=== PATIENT | female | born 2000 | race Caucasian/White ===

== ENCOUNTER 2019-01-24 18:40 | Emergency (ER) | payer OTHER ==
[~2019-01-24] VITALS: Ht 157.5 cm; Wt 73.9 kg
[2019-01-24 18:43] VITALS: BP 138/94
--- NOTE | 2019-01-24 18:47 | NUR ---
PT TO [facility]ONT[facility]. [id number]. VSS
--- NOTE | 2019-01-24 19:07 | NUR ---
PT AMBULATED TO BED 11 WITH STEADY GAIT.
--- NOTE | 2019-01-24 19:12 | NUR ---
18 YO F BIB SELF PRESENTS TO ED STATING "I THINK I WAS EXPOSED TO [facility] FOR 3-5 HOURS". 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 PT C/O NAUSEA, VOMITING X 1, DIZZINESS, "FEELING DISORIENTED" AND MILD ANXIETY. PT DENIES PAIN BUT STATES HER CHEST FEELS HEAVY. -- PT AWAKE, A/O X 4, CALM, COOPERATIVE. SPEAKING IN FULL, CLEAR SENTENCES. BEHAVIOR AGE APPROPRIATE. -- SKIN PINK, WARM, DRY. BREATHING EVEN, UNLABORED. PMH-- DENIES RX-- DENIES
--- NOTE | 2019-01-24 21:11 | NUR ---
WAS NOTIFIED BY EMT THAT PT ELOPED, DR MARIE MADE AWARE.
== END 2019-01-24 21:11 | disposition left against medical advice (07) ==
LOC: MED 18:40
DX: T58.8X1A Toxic effect of carbon monoxide from other source, accidental (unintentional), initial encounter (principal); R42 Dizziness and giddiness; R51 Headache; R11.2 Nausea with vomiting, unspecified; Y92.59 Other trade areas as the place of occurrence of the external cause
CPT/HCPCS: 81002; 81025; 99282

== ENCOUNTER 2019-08-24 22:25 | Emergency (ER) | payer OTHER ==
[~2019-08-24] VITALS: Ht 157.5 cm; Wt 83.6 kg
[2019-08-24 22:30] VITALS: BP 167/97
--- NOTE | 2019-08-24 22:46 | NUR ---
PT AMBULATED TO BED 11 WITH STEADY GAIT.
--- NOTE | 2019-08-24 22:50 | NUR ---
19F C/O APPROX 1 CM X 1 CM LACERATION TO RIGHT WRIST. PT DOES NOT KNOW HOW IT HAPPENED. TOOK 3 SHOTS OF TEQUILA, INTOXICATED. PMH-- DENIES RX: DENIES
[2019-08-24] MEDS ORDERED: LIDOCAINE 2% 1000 MG/50 ML VIAL INJ ONE (23:00)
--- NOTE | 2019-08-24 23:54 | NUR ---
DR KAUFFMAN AT BEDSIDE PERFORMING PROCEDURE
--- NOTE | 2019-08-25 00:08 | NUR ---
XRAY AT BEDSIDE
--- NOTE | 2019-08-25 00:14 | NUR ---
pt administered with tdap vaccine. consent signed.
[2019-08-25] MEDS ORDERED: NEOMYCIN/POLYMYXIN/BACITRACIN 0.9 GM/1 PKT TP ONE (00:25)
[2019-08-25 00:44] VITALS: BP 167/97
--- NOTE | 2019-08-25 00:44 | NUR ---
Patient discharged with v/s stable. Written and verbal after care instructions given and explained. Patient verbalized understanding. Ambulatory with steady gait. All questions addressed prior to discharge. Advised to follow up with PMD.
== END 2019-08-25 00:44 | disposition home or self-care (01) ==
LOC: MED 22:25
DX: S61.511A Laceration without foreign body of right wrist, initial encounter (principal); W26.8XXA Contact with other sharp object(s), not elsewhere classified, initial encounter; Y93.89 Activity, other specified; Y92.89 Other specified places as the place of occurrence of the external cause; Y99.8 Other external cause status
CPT/HCPCS: 12001; 73110; 90471; 90715; 99283; J2001; Q0092

== ENCOUNTER 2019-10-29 08:40 | Emergency (ER) | payer OTHER ==
[~2019-10-29] VITALS: Ht 160 cm; Wt 84.8 kg
[2019-10-29 08:46] VITALS: BP 149/91
--- NOTE | 2019-10-29 08:47 | NUR ---
PT AMBULATED TO BED 06
--- NOTE | 2019-10-29 08:51 | NUR ---
19 Y/O FEMALE FROM HOME PRESENTS TO ER FOR SUTURE RECHECK, SUTURES PLACED 08/24/2019 TO RT WRIST AND NEVER HAD THEM REMOVED, SKIN HAS GROWN OVER ONE SUTURE AND ONE SUTURE NOTICABLE. STATES 5/10 PAIN AT THIS TIME. AFEBRILE AT THIS TIME. +CMS, +PULSES. AWAKE AND ALERT. VSS
--- NOTE | 2019-10-29 09:27 | NUR ---
DR NOONAN AT BEDSIDE EXAMINING PT
[2019-10-29] MEDS ORDERED: LIDOCAINE/EPI 1% 1:100000 20 ML VIAL INJ ONE (09:30)
--- NOTE | 2019-10-29 09:34 | NUR ---
LIDOCAINE PLACED AT BEDSIDE FOR USE BY DR NOONAN.
--- NOTE | 2019-10-29 10:22 | NUR ---
SITTING IN BED AWAKE AND ALERT. RR EVEN AND UNLABORED. VSS. WILL CONTINUE TO MONITOR
--- NOTE | 2019-10-29 10:35 | NUR ---
DR NOONAN AT BEDSIDE PERFORMING PROCEDURE
[2019-10-29 10:51] VITALS: BP 138/88
== END 2019-10-29 10:51 | disposition home or self-care (01) ==
LOC: MED 08:40
DX: S61.511D Laceration without foreign body of right wrist, subsequent encounter (principal); L03.113 Cellulitis of right upper limb; X58.XXXD Exposure to other specified factors, subsequent encounter
CPT/HCPCS: 99282; J2001

== ENCOUNTER 2020-08-29 15:49 | Emergency (ER) | payer OTHER ==
[~2020-08-29] VITALS: Ht 157.5 cm; Wt 93.9 kg
[2020-08-29 15:57] VITALS: BP 155/125
--- NOTE | 2020-08-29 16:01 | NUR ---
PT TAKEN TO ER BED 9.
--- NOTE | 2020-08-29 16:03 | NUR ---
HARDEEP Marks at pt bedside for further evaluation.
[2020-08-29] MEDS ORDERED: KETOROLAC 30 MG/ML VIAL IM ONE (16:05)
--- NOTE | 2020-08-29 16:07 | NUR ---
20 Y/O FEMALE C/O LEFT FOOT PAIN 10/02 DESCRIBES SHARP NON-RADIATING X1DAY WORSEN WITH AMBULATION. S/P FALL. PT STATED TAKEN TYLENOL FOR THE PAIN WITH MINIMAL RELIEF. PT DENIES N/V, DENIES FEVER/CHILLS. DENIES PMH NKA
[2020-08-29] MEDS ORDERED: ACETAMINOPHEN EXTRA STRENGTH 500 MG TAB PO ONE (16:40)
[2020-08-29] MEDS ORDERED: NAPR-54 PO (16:58)
[2020-08-29 17:11] VITALS: BP 155/125
--- NOTE | 2020-08-29 17:12 | NUR ---
Patient discharged with v/s stable. Written and verbal after care instructions given and explained. Patient alert, oriented and verbalized understanding of instructions. Ambulatory with steady gait. All questions addressed prior to discharge. ID band removed. Patient advised to follow up with PMD. Rx of naproxen 500mg po bid prn pain given. Patient educated on indication of medication including possible reaction and side effects. Opportunity to ask questions provided and answered.
== END 2020-08-29 17:12 | disposition home or self-care (01) ==
LOC: MED 15:49
DX: M79.671 Pain in right foot (principal); W18.41XA Slipping, tripping and stumbling without falling due to stepping on object, initial encounter; Y93.89 Activity, other specified; Y92.89 Other specified places as the place of occurrence of the external cause; Y99.8 Other external cause status
CPT/HCPCS: 73630; 99283; J1885

== ENCOUNTER 2021-04-20 08:29 | Emergency (ER) | payer OTHER ==
[~2021-04-20] VITALS: Ht 157.5 cm; Wt 100.7 kg
[~2021-04-20 08:29] MED LIST: NAPR-54 PO
[2021-04-20 08:39] VITALS: BP 156/65
--- NOTE | 2021-04-20 08:40 | NUR ---
urbano and fadi swabbed at this time.
--- NOTE | 2021-04-20 08:44 | NUR ---
pt returned to tent 01.
[2021-04-20 09:16] VITALS: BP 156/65
== END 2021-04-20 09:06 | disposition home or self-care (01) ==
LOC: MED 08:29
DX: J06.9 Acute upper respiratory infection, unspecified (principal); Z20.822 Contact with and (suspected) exposure to COVID-19; Z79.899 Other long term (current) drug therapy
CPT/HCPCS: 87426; 99283; U0003

== ENCOUNTER 2021-05-11 11:33 | Emergency (ER) | payer OTHER ==
[~2021-05-11] VITALS: Ht 162.6 cm; Wt 86.2 kg
[2021-05-11 11:45] VITALS: BP 146/99
[2021-05-11] MEDS ORDERED: ACETAMINOPHEN 325 MG TAB PO ONE (12:15)
[2021-05-11] MEDS ORDERED: ACET-8386 PO (15:43)
--- NOTE | 2021-05-11 16:03 | NUR ---
PER ERPA PT RIGHT UPPER AND LOWER ARM WAS PLACE IN A SPLINT AND PMCS WAS ASSESSED BEFORE AND AFTER ALL WNL. ERPA ASSESSED SPLINT AND APPROVED.
== END 2021-05-11 16:33 | disposition home or self-care (01) ==
LOC: MED 11:33
DX: S52.001A Unspecified fracture of upper end of right ulna, initial encounter for closed fracture (principal); Z79.899 Other long term (current) drug therapy; W17.89XA Other fall from one level to another, initial encounter; Y93.89 Activity, other specified; Y92.89 Other specified places as the place of occurrence of the external cause; Y99.8 Other external cause status
CPT/HCPCS: 29105; 73080; 73090; 73200; 99284

== ENCOUNTER 2021-07-08 18:48 | Emergency (ER) | payer OTHER ==
[~2021-07-08] VITALS: Ht 157.5 cm; Wt 97.5 kg
[~2021-07-08 18:48] MED LIST changes: +ACET-8386 PO
--- NOTE | 2021-07-08 19:00 | NUR ---
HARDEEP BACON EVALUATING PATIENT AT BEDSIDE.
[2021-07-08 19:08] VITALS: BP 130/69
--- NOTE | 2021-07-08 19:26 | NUR ---
Pt report given to MILA FORMAN. Transfer of care at this time.
[2021-07-08] MEDS ORDERED: NAPR-54 PO (19:44)
[2021-07-08 19:55] VITALS: BP 125/78
--- NOTE | 2021-07-08 19:56 | NUR ---
dcPatient discharged with v/s stable WITH RIGHT INDEX SPLINTED. Written and verbal after care instructions given and explained. Patient alert, oriented and verbalized understanding of instructions. Ambulatory with steady gait. All questions addressed prior to discharge. ID band removed. Patient advised to follow up with PMD. Rx of NAPROSYN given. Patient educated on indication of medication including possible reaction and side effects. Opportunity to ask questions provided and answered.
== END 2021-07-08 19:56 | disposition home or self-care (01) ==
LOC: MED 18:48
DX: S62.600A Fracture of unspecified phalanx of right index finger, initial encounter for closed fracture (principal); Z79.899 Other long term (current) drug therapy; Z98.890 Other specified postprocedural states; W23.0XXA Caught, crushed, jammed, or pinched between moving objects, initial encounter; Y93.89 Activity, other specified; Y92.89 Other specified places as the place of occurrence of the external cause; Y99.8 Other external cause status
CPT/HCPCS: 73140; 99283

== ENCOUNTER 2023-11-15 03:39 | Emergency (ER) | payer MEDICAID, OTHER ==
[~2023-11-15] VITALS: Ht 157.5 cm; Wt 99.8 kg
[~2023-11-15 03:39] MED LIST changes: -ACET-8386 PO; +ACET-8905 PO; +NAPR-337 PO; -NAPR-54 PO
[2023-11-15 03:44] VITALS: BP 136/84; PULSE 90; RESP 20; TEMP 98.6; O2SAT 98
[2023-11-15 04:23] VITALS: O2SAT 98
[2023-11-15 04:27] LABS: FLU A ANTIGEN negative (NEGATIVE); FLU B ANTIGEN NEGATIVE (NEGATIVE)
[2023-11-15] MEDS ORDERED: ALBU0.0912 IH (04:40)
[2023-11-15] MEDS ORDERED: BENZ200C4 PO (04:40)
[2023-11-15] MEDS ORDERED: AZIT250T4 PO (04:40)
== END 2023-11-15 04:46 | disposition home or self-care (01) ==
LOC: MED 03:39
DX: J18.9 Pneumonia, unspecified organism (principal); R19.7 Diarrhea, unspecified; Z20.822 Contact with and (suspected) exposure to COVID-19; Z79.1 Long term (current) use of non-steroidal anti-inflammatories (NSAID); Z79.2 Long term (current) use of antibiotics; Z79.899 Other long term (current) drug therapy
CPT/HCPCS: 71045; 99284; Q0092

== ENCOUNTER 2023-11-17 17:49 | Emergency (ER) | payer MEDICAID ==
[~2023-11-17] VITALS: Ht 167.6 cm; Wt 81.6 kg
[~2023-11-17 17:49] MED LIST changes: +ALBU0.0912 IH; +AZIT250T4 PO; +BENZ200C4 PO
[2023-11-17 18:07] VITALS: BP 144/87; PULSE 94; RESP 18; TEMP 97.8; O2SAT 97
[2023-11-17] MEDS ORDERED: BACI-418 TP (18:33)
[2023-11-17] MEDS: BACITRACIN OINT 500 UNITS/GM PKT TP ONE (18:48)
[2023-11-17 18:52] VITALS: BP 144/87; PULSE 94; RESP 18; TEMP 97.8; O2SAT 97
== END 2023-11-17 18:50 | disposition home or self-care (01) ==
LOC: MED 17:49
DX: S60.410A Abrasion of right index finger, initial encounter (principal); R03.0 Elevated blood-pressure reading, without diagnosis of hypertension; Z79.1 Long term (current) use of non-steroidal anti-inflammatories (NSAID); Z79.2 Long term (current) use of antibiotics; Z79.899 Other long term (current) drug therapy; W26.0XXA Contact with knife, initial encounter; Y93.89 Activity, other specified; Y92.89 Other specified places as the place of occurrence of the external cause; Y99.8 Other external cause status
CPT/HCPCS: 99283